=== PATIENT | female | born 1980 | race Two or more races ===

== ENCOUNTER 2019-05-20 18:13 | Emergency (ER) | payer OTHER ==
[~2019-05-20] VITALS: Ht 144.8 cm; Wt 72.7 kg
--- NOTE | 2019-05-20 18:27 | NUR ---
PATIENT PRESENTS TO ED TODAY FOR LT SIDED CHEST PAIN X 3, WORSE WITH PALPATION. DENIES SOB, DENIES RECENT TRAVEL/INJURY. REPORTS INCREASE STRESS WITH JOB. MOTOR VEHICLE SALESPERSON ON PATIENT, FAMILY AT BEDSIDE, CALL LIGHT WITHIN REACH. DR EUGENE AT BEDSIDE, AWAITING MD ORDERS.
[2019-05-20] MEDS ORDERED: HYDROcodone/APAP 5/325 TABLET PO ONE (18:30)
[2019-05-20] MEDS ORDERED: LORazepam 1MG TABLET PO ONE (18:30)
[2019-05-20] MEDS ORDERED: IBUP200T64 PO (18:34)
--- NOTE | 2019-05-20 18:34 | NUR ---
PATIENT TO XRAY VIA GURNEY. MAHAJAN
[2019-05-20] MEDS ORDERED: LORazepam 1MG TABLET ONE (18:36)
[2019-05-20] MEDS ORDERED: HYDROcodone/APAP 5/325 TABLET ONE (18:36)
--- NOTE | 2019-05-20 18:41 | NUR ---
LAB AT BEDSIDE.
[2019-05-20 19:02] LABS: BASOPHILS # (AUTO) 0.03 x10^3/uL (0-0.1); BASOPHILS % (AUTO) 0 % (0-1); EOSINOPHILS # (AUTO) 0.13 x10^3/uL (0-0.4); EOSINOPHILS % (AUTO) 1 % (1-7); LYMPHOCYTES # (AUTO) 2.84 x10^3/uL (1-3.4); LYMPHOCYTES % (AUTO) 29 % (22-44); MD NO; MEAN CORPUSCULAR HEMOGLOBIN 30.5 pg (27.0-34.8); MEAN CORPUSCULAR HGB CONC 33.7 g/dL (32.4-35.8); MEAN CORPUSCULAR VOLUME 90.5 fL (80-100); MEAN PLATELET VOLUME 7.7 fL (7.4-10.4); MONOCYTES # (AUTO) 0.93 x10^3/uL (0.2-0.8); MONOCYTES % (AUTO) 10 % (2-9); NEUTROPHILS # (AUTO) 5.73 x10^3/uL (1.8-6.8); NEUTROPHILS % (AUTO) 59 % (42-75); PLATELET COUNT 424 x10^3/uL (130-400); RED BLOOD COUNT 4.78 x10^6/uL (3.82-5.3); RED CELL DISTRIBUTION WIDTH 13.2 % (9.6-15.2)
[2019-05-20 19:10] LABS: ALBUMIN 4.1 g/dL (3.4-5.0); ANION GAP 9 mmol/L (5-15); CALCIUM 9.3 mg/dL (8.5-10.1); CHLORIDE 108 mmol/L (98-107); CREATININE 0.86 mg/dL (0.55-1.02)
[2019-05-20 19:14] LABS: TROPONIN I < 0.015 ng/mL (0.000-0.045)
--- NOTE | 2019-05-20 19:15 | NUR ---
RESULTS BACK, CHART UP FOR RECHECK.
[2019-05-20 19:43] VITALS: BP 113/84
--- NOTE | 2019-05-20 19:43 | NUR ---
Patient/Caregiver given discharge instructions and they have confirmed that they understand the instructions. Patient ambulatory with steady gait. Addendum: 05/20/19 at 1943 by SURI PATIENT'S FAMILY TO DRIVE PATIENT HOME FOR SAFE DC.
== END 2019-05-20 19:45 | disposition home or self-care (01) ==
LOC: ED 19:21
DX: R07.89 Other chest pain (principal)
CPT/HCPCS: 36415; 71046; 80048; 82040; 84484; 84703; 85025; 93005; 99284